=== PATIENT | female | born 1950 | race Two or more races ===

== ENCOUNTER → 2020-05-22 08:00 | Outpatient (CLI) | payer OTHER | END | disposition home or self-care (01) | LOC: LAB 08:00 → ADM 13:00 → AMB-ENDOS 05-29 13:00 → EDSTATUS 05-29 13:00 | PROVIDERS: ATTEND Colon & Rectal Surgery | DX: R15.9 Full incontinence of feces (principal); N39.498 Other specified urinary incontinence; K92.1 Melena; D50.8 Other iron deficiency anemias; Z03.818 Encounter for observation for suspected exposure to other biological agents ruled out; Z20.822 Contact with and (suspected) exposure to COVID-19 ==

== ENCOUNTER 2020-08-28 07:58 | Day surgery (SDC) | payer OTHER | END 2020-08-28 14:40 | disposition home or self-care (01) | LOC: AMB-ENDOS 07:58 | PROVIDERS: ATTEND Colon & Rectal Surgery | DX: D13.1 Benign neoplasm of stomach (principal); K44.9 Diaphragmatic hernia without obstruction or gangrene; K64.2 Third degree hemorrhoids; Z20.822 Contact with and (suspected) exposure to COVID-19 ==